=== PATIENT | male | born 1995 | race Two or more races ===

== ENCOUNTER 2024-02-19 23:09 | Emergency (ER) | payer MEDICAID, SELFPAY ==
[2024-02-19 23:15] VITALS: BP 131/72; PULSE 105; RESP 17; TEMP 37; O2SAT 96
[2024-02-19 23:21] VITALS: PULSE 115; RESP 16; O2SAT 97
[2024-02-19 23:32] VITALS: BMI 26.6
--- NOTE | 2024-02-19 23:51 | EDNOTE_ITS ---
ED Seizures RME/HPI General Chief Complaint: Seizure Stated Complaint: SEIZURE Arrival date/time: 02/19/24 23:09 Limitations: no limitations RME / HPI RME / HPI Narrative: Dr. [facility] ED Evaluation: 28yo male with a history of seizures DELICIA presents to the ED for a seizure. Patient states his seizure lasted for minutes . He endorses he's been compliant with his seizure medications and has not missed any doses. His next dose is due now. He denies any cough, runny noses, fever, chills, N/V or any other associated symptoms. No known allergies. Related Data Previous Rx's ?Medication ?Instructions ?Recorded amoxicillin 875 mg-potassium 1 tab PO BID #20 tabs 07/08/17 clavulanate 125 mg tablet (Augmentin) oxycodone-acetaminophen 5 mg-325 1 tab PO Q6H PRN pain #20 tabs 07/08/17 mg tablet (Percocet) valproic acid 250 mg capsule 500 mg (2 x 250 mg) PO BID #60 caps 07/08/17 ibuprofen 800 mg tablet 800 mg PO TID PRN pain #30 tabs 07/05/22 Allergies Allergy/AdvReac Type Severity Reaction Status Date / Time No Known Allergies Allergy Verified 12/11/23 12:20 Review of Systems Review of Systems Systems Reviewed: All systems reviewed, normal except as documented Past Medical History Past Medical History NEUROLOGIC: Positive Seizures CARDIAC: Negative Congestive Heart Failure RESPIRATORY: Negative Chronic Obstructive Pulmonary Disease (COPD) GENITOURINARY: Negative Renal Disease ENDOCRINE: Negative Diabetes Mellitus Type 1 or Diabetes Mellitus Type 2 Social History SMOKING STATUS: Current some day smoker ED Exam General Limitations: Present no limitations General appearance: Present alert and in no apparent distress Head Head exam: Present normocephalic and other (superficial laceration on the right side of the occipital scalp, bleeding is controlled, no step-off) Eye Eye exam: Present normal appearance, PERRL and EOMI ENT ENT exam: Present normal exam, normal oropharynx and mucous membranes moist Neck Neck exam: Present normal inspection, full ROM and trachea midline Chest Chest inspection: Present normal inspection and symmetric chest wall rise Respiratory Respiratory exam: Present normal lung sounds bilaterally Cardiovascular Cardiovascular exam: Present regular rate, normal rhythm and normal heart sounds Abdominal Exam Abdominal exam: Present soft and normal bowel sounds Extremities Exam Extremities exam: Present normal inspection and full ROM Back Exam Back exam: Present normal inspection and full ROM Neurological Exam Neurological exam: Present alert, oriented X3 and CN II-XII intact Psychiatric Psychiatric exam: Present normal affect and normal mood Skin Skin exam: Present warm, dry, intact and normal color Course Quality Measures none Orders Category Date Time Status Valproate Sod Inj [Depacon Inj] 500 mg Med 02/19/24 23:56 Active Sodium Chloride 0.9% [Ns] 50 ml IV X1 Vital Signs Vital signs: Vital Signs Temperature 98.6 F 02/19/24 23:15 Pulse Rate 105 H 02/19/24 23:15 Respiratory Rate 17 02/19/24 23:15 Blood Pressure 131/72 H 02/19/24 23:15 Pulse Oximetry (%) 96 02/19/24 23:15 Oxygen Delivery Method Room Air 02/19/24 23:15 Pulse ox is 96% on room air, which is normal according to my interpretation. Seizure Patient data External records reviewed:: [facility] previous records (Per chart review, patient was seen here on 12/11/23 for a generalized seizure.) Clinical information provided by:: patient Social determinants that could affect healthcare access:: none Patient has the following chronic illnesses:: seizures How is presenting disease/condition affected by chronic disease/condition?: caused by Evaluation data The following diagnostics were reviewed and interpreted by me:: other (specify) (none) Lab and/or radiology exams considered but not ordered:: Labs considered, but are not indicated. Interpretation Summary: none Medications / Prescriptions Medications or Prescriptions considered but not ordered:: none Medication administrations:: Medication Administration History Valproic Acid 500 mg/ Sodium (Chloride) 55 mls @ 50 mls/hr IV X1 ONE Stop: 02/20/24 01:01 see above, if any Consultations Consultation(s) initiated? (list below): No Diagnosis Seizure Differential Diagnosis: generalized seizure and other (closed head injury, laceration, noncompliance) Most likely diagnosis given after review of the tests above:: see below Admission Indicated Admission indicated?: not indicated Admission Request Was there a request for admission?: No Disposition Plan Disposition Plan: Discharge Discharge Attestation Discharge Attestation: The patient and all family members were given an opportunity to ask questions and understood the discharge instructions. Discharge instructions specifically effects, indications for sooner follow up or return to the emergency department, and the expected course of current diagnosis. Patient condition: Stable Discharge Plan Plan Patient Disposition: HOME (Self Care) Patient condition on transfer: Stable Prescriptions/Referrals Prescriptions/Med Rec: No Action valproic acid 250 mg capsule 500 mg PO BID Qty: 60 0RF amoxicillin-pot clavulanate [Augmentin] 875-125 mg tablet 1 tab PO BID Qty: 20 0RF oxycodone-acetaminophen [Percocet] 5-325 mg tablet 1 tab PO Q6H MDD 4 tabs PRN (Reason: pain) Qty: 20 0RF ibuprofen 800 mg tablet 800 mg PO TID PRN (Reason: pain) Qty: 30 0RF Referrals: No Primary/Family,Physician [Primary Care Provider] - In 1 week Problem List Clinical Impression: Generalized seizure, Hx of seizure disorder, Laceration of scalp Patient/Caregiver Discharge Instructions Education Materials: ED Seizure, Recurrent (Adult), ED Laceration Small No Sutr Ch Additional Instructions: It was a pleasure meeting you today. Please continue medications as prescribed. Return to the emergency department for any worsening symptoms, you feel like your seizures are not at baseline, or any other concerns. Print Language: [place]ian Stand Alone Forms: Estephanie Award Info., Patient Portal Info Letter
[2024-02-20] MEDS: VALPROATE SOD INJ 500 MG in SODIUM CHLORIDE 0.9% 50 ML 50 MG IV (00:22)
[2024-02-20 01:28] VITALS: BP 118/71; PULSE 60; RESP 16; TEMP 36.7; O2SAT 99
== END 2024-02-20 01:27 | disposition home or self-care (01) ==
PROVIDERS: Emergency Provider Emergency Medicine
DX: S01.01XA Laceration without foreign body of scalp, initial encounter (principal); R56.9 Unspecified convulsions; X58.XXXA Exposure to other specified factors, initial encounter
CPT/HCPCS: 96365; 99284